=== PATIENT | female | born 1955 ===

== ENCOUNTER 2017-10-21 01:58 | Inpatient (IN) | payer OTHER ==
[2017-10-21] MEDS ORDERED: Pantoprazole 80 MG in Sodium Chloride 0.9% 100 ML IV STA (03:04)
[2017-10-21] MEDS ORDERED: Sodium Chloride 0.9% 1,000 ML IV ONE (03:04)
--- NOTE | 2017-10-21 03:04 | C.PDOC ---
History Of Present Illness Patient presents to ED with complaints of light headedness, dizziness, and vomiting coffee ground emesis. Daughter presented picture showing approximately 200-300cc of the patient's coffee ground emesis. Patient denies fever, chills, chest pain, or palpitations. Time Seen by Provider: 10/21/17 03:03 Chief Complaint (Nursing): Abdominal Pain History Per: Patient History/Exam Limitations: no limitations Onset/Duration Of Symptoms: Hrs Current Symptoms Are (Timing): Still Present Severity: Mild Pain Scale Rating Of: 4 Radiation Of Pain To:: None Quality Of Discomfort: Unable To Describe Associated Symptoms: Vomiting. denies: Fever, Chills, Diarrhea Exacerbating Factors: None Alleviating Factors: None Recent travel outside of the [place]: No Additional History Per: Family Abnormal Vaginal Bleeding: No Past Medical History Reviewed: Historical Data, Nursing Documentation, Vital Signs Vital Signs: Last Vital Signs Temp 97.4 F L 10/21/17 02:06 Pulse 115 H 10/21/17 03:20 Resp 20 10/21/17 03:20 BP 146/88 10/21/17 03:20 Pulse Ox 98 10/21/17 04:04 - Medical History PMH: No Chronic Diseases Family History: States: No Known Family Hx - Social History Hx Alcohol Use: No Hx Substance Use: No - Immunization History Hx Tetanus Toxoid Vaccination: No Hx Influenza Vaccination: No Hx Pneumococcal Vaccination: No Review Of Systems Constitutional: Negative for: Fever, Chills Cardiovascular: Positive for: Light Headedness. Negative for: Chest Pain, Palpitations Gastrointestinal: Positive for: Vomiting (Coffee ground). Negative for: Diarrhea Neurological: Positive for: Dizziness. Negative for: Confusion Physical Exam - Physical Exam Appears: Non-toxic, Other (Alert, awake) Skin: Warm, Dry Head: Normacephalic Eye(s): bilateral: Normal Inspection Oral Mucosa: Dry Chest: Symmetrical, No Tenderness Cardiovascular: Rhythm Regular Respiratory: No Rales, No Rhonchi, No Wheezing Gastrointestinal/Abdominal: Soft, No Tenderness, No Guarding, No Rebound, Other (Tympanic to percussion ) Neurological/Psych: Oriented x3 ED Course And Treatment - Laboratory Results Result Diagrams: 10/21/17 03:19 10/21/17 03:19 ECG: Interpreted By Me, Viewed By Me ECG Rhythm: Sinus Rhythm (107), Nonspecific Changes O2 Sat by Pulse Oximetry: 98 (Room air) Pulse Ox Interpretation: Normal Progress Note: Ordered Urinalysis, occult blood test, blood work, and EKG. Administered Protonix Inj, Zofran Inj, and IV fluids. Disposition Discussed With DrElysia: Randall Cortez Comment: accepted the pt on his service and took over the care at 3:58 AM Doctor Will See Patient In The: Hospital Counseled Patient/Family Regarding: Studies Performed, Diagnosis - Disposition Disposition: HOSPITALIZED Disposition Time: 03:04 Condition: FAIR Forms: [employer] (Telugu) - POA Present On Arrival: Poor Glycemic Control - Clinical Impression Clinical Impression: Abdominal pain, Vomiting, UGI bleed - Scribe Statement The provider has reviewed the documentation as recorded by the Scribsusan Polanco All medical record entries made by the Scribe were at my direction and personally dictated by me. I have reviewed the chart and agree that the record accurately reflects my personal performance of the history, physical exam, medical decision making, and the department course for this patient. I have also personally directed, reviewed, and agree with the discharge instructions and disposition. Decision To Admit - Pt Status Changed To: Hospital Disposition Of: Inpatient - Admit Certification Admit to Inpatient:: After my assessment, the patient will require hospitalization for at least two midnights. This is because of the severity of symptoms shown, intensity of services needed, and/or the medical risk in this patient being treated as an outpatient. - InPatient: Physician Admission Certification:: After my assessment, the patient will require hospitalization for at least two midnights. This is because of the severity of symptoms shown, intensity of services needed, and/or the medical risk in this patient being treated as an outpatient. - . Bed Request Type: Regular Patient Diagnosis: Abdominal pain, Vomiting, UGI bleed
[2017-10-21 03:29] LABS: ALKALINE PHOSPHATASE 94 U/L (38-126); ALT/SGPT 158 U/L (9-52); AST/SGOT 169 U/L (14-36); BILIRUBIN,TOTAL 1.4 mg/dL (0.2-1.3); BLOOD UREA NITROGEN 26 mg/dL (7-17); CALCIUM 7.8 mg/dl (8.6-10.4); CARBON DIOXIDE 27 mmol/L (22-30); CHLORIDE 107 mmol/L (98-107); GFR AFRICAN-AMERICAN > 60; GLUCOSE,RANDOM 164 mg/dL (65-105); POTASSIUM 4.1 mmol/L (3.6-5.2); SODIUM 139 mmol/L (132-148); TOTAL PROTEIN 8.1 g/dL (6.3-8.3)
[2017-10-21 03:31] LABS: ALB/GLOB RATIO 0.6 (1.0-2.1)
[2017-10-21] MEDS ORDERED: Sodium Chloride 0.9% 1,000 ML ONE (03:31)
[2017-10-21 03:32] LABS: INR 1.3
[2017-10-21 03:33] LABS: RBC URINE < 1 /hpf (0-3); URINE BILIRUBIN NEGATIVE (NEGATIVE); URINE BLOOD NEGATIVE (NEGATIVE); URINE COLOR Yellow (YELLOW); URINE GLUCOSE (UA) NORMAL (Normal); URINE KETONE TRACE mg/dL (NEGATIVE); URINE LEUKOCYTE ESTERASE NEG Leu/uL (Negative); URINE PROTEIN NEGATIVE (NEGATIVE); URINE UROBILINOGEN NORMAL mg/dL (0.2-1.0); WBC URINE 1 /hpf (0-5)
[2017-10-21 03:33] LABS: BASO # 0.1 K/uL (0.0-0.2); BASO % 0.7 % (0.0-2.0); EOS # 0.1 K/uL (0.0-0.7); EOS % 0.9 % (0.0-4.0); HEMATOCRIT 36.2 % (34.0-47.0); LYMPH # 1.3 K/uL (1.0-4.3); LYMPH % 16.6 % (20.0-40.0); MEAN CORPUSCULAR HGB CONC 33.7 g/dL (33.0-37.0); MEAN PLATELET VOLUME 10.2 fL (7.2-11.7); MONO # 0.2 K/uL (0.0-0.8); RED CELL DISTRIBUTION WIDTH 12.5 % (11.5-14.5)
[2017-10-21] MEDS ORDERED: Pantoprazole 80 MG in Sodium Chloride 0.9% 100 ML IVP SCH (04:30)
[2017-10-21] MEDS: Sodium Chloride 0.9% 1,000 ML IV SCH ×2 (07:12→12:50)
--- NOTE | 2017-10-21 08:17 | CP.PCM.CON ---
<Nani Fleming - Last Filed: 10/21/17 08:10> History of Present Illness - History of Present Illness History of Present Illness: GI Fellow PGY 4 Consult Note This is a 62yF with pmhx of HCV treatment naive, arthritis presenting with 2 episodes of coffee ground emesis prior to arrival to ER. Pt denies prior hx of GI bleed, denies melena, hematochezia. No prior EGD/Colonoscopy. Pt does report taking Ibuprofen 400mg tab bid for months. Denies epigastric pain, nausea, per daughter at bedside she took a pic and it looks like 200cc of coffee ground emesis. Pt endorses diagnosis of HCV last year and has an appointment at [facility] this to establish care. Pt reports transmission of virus via who was also positive for HCV. Pt was started on IV Protonix drip, H/H stable, BP stable, Tachycardic. ROS: A 12pt ROS was negative except as above. PmHx: As Stated in HPI PsHx: Denies SHx: Denies tobacco, etoh, drug use FHx: Denies colon, liver or pancreatic cancer Past Patient History - Past Social History Smoking Status: Never Smoked - HEMATOLOGICAL/ONCOLOGICAL Hx Hepatitis C: Yes - PSYCHIATRIC Hx Substance Use: No - ANESTHESIA Hx Anesthesia: No Meds Allergies/Adverse Reactions: Allergies Allergy/AdvReac Type Severity Reaction Status Date / Time No Known Allergies Allergy Unverified 10/21/17 02:16 - Medications Medications: Current Medications Pantoprazole Sodium 80 mg/ (Sodium Chloride) 100 mls @ 10 mls/hr IVP .Q10H TARYN PRN Reason: 8 MG/HR Last Admin: 10/21/17 04:59 Dose: 10 mls/hr Sodium Chloride (Sodium Chloride 0.9%) 1,000 mls @ 150 mls/hr IV .Q6H40M [facility] Last Admin: 10/21/17 07:12 Dose: 150 mls/hr Pneumococcal Polyvalent Vaccine (Pneumovax 23 Vaccine) 0.5 ml IM .ONCE ONE Stop: 10/24/17 10:01 Physical Exam - Constitutional Appears: Non-toxic, No Acute Distress - Head Exam Head Exam: ATRAUMATIC, NORMAL INSPECTION, NORMOCEPHALIC - Eye Exam Eye Exam: EOMI, Normal appearance, PERRL Pupil Exam: NORMAL ACCOMODATION - ENT Exam ENT Exam: Mucous Membranes Moist, Normal Exam - Neck Exam Neck exam: Positive for: Full Rom, Normal Inspection - Respiratory Exam Respiratory Exam: Clear to Auscultation Bilateral, NORMAL BREATHING PATTERN - GI/Abdominal Exam GI & Abdominal Exam: Normal Bowel Sounds, Soft. absent: Distended, Guarding, Organomegaly, Tenderness - Rectal Exam Additional comments: brown stool - Extremities Exam Extremities exam: Positive for: full ROM, normal inspection. Negative for: pedal edema - Back Exam Back exam: NORMAL INSPECTION - Neurological Exam Neurological exam: Alert, Oriented x3 - Psychiatric Exam Psychiatric exam: Normal Affect, Normal Mood - Skin Skin Exam: Dry, Intact, Normal Color, Warm Results - Vital Signs Recent Vital Signs: Last Vital Signs Temp 98.3 F 10/21/17 07:43 Pulse 107 H 10/21/17 07:43 Resp 20 10/21/17 07:43 BP 113/65 10/21/17 07:43 Pulse Ox 99 10/21/17 07:43 - Labs Result Diagrams: 10/21/17 03:19 10/21/17 03:19 Labs: Laboratory Results - last 24 hr 10/21/17 10/21/17 10/21/17 03:19 03:19 03:21 WBC 8.0 RBC 3.69 L Hgb 12.2 Hct 36.2 MCV 98.0 MCH 33.0 H MCHC 33.7 RDW 12.5 Plt Count 169 MPV 10.2 Neut % (Auto) 78.8 H Lymph % (Auto) 16.6 L [place] % (Auto) 3.0 Eos % (Auto) 0.9 Baso % (Auto) 0.7 Neut # 6.3 Lymph # 1.3 [place] # 0.2 Eos # 0.1 Baso # 0.1 PT 14.1 H INR 1.3 APTT 36 H Sodium 139 Potassium 4.1 Chloride 107 Carbon Dioxide 27 Anion Gap 8 L BUN 26 H Creatinine 0.7 Est GFR ( Amer) > 60 Est GFR (Non-Af Amer) > 60 Random Glucose 164 H Calcium 7.8 L Total Bilirubin 1.4 H AST 169 H ALT 158 H Alkaline Phosphatase 94 Total Protein 8.1 Albumin 3.1 L Globulin 5.0 H Albumin/Globulin Ratio 0.6 L Urine Color Urine Clarity Urine pH Ur Specific [place] Urine Protein Urine Glucose (UA) Urine Ketones Urine Blood Urine Nitrate Urine Bilirubin Urine Urobilinogen Ur Leukocyte Esterase Urine WBC (Auto) Urine RBC (Auto) Blood Type Antibody Screen 10/21/17 10/21/17 03:28 04:09 WBC RBC Hgb Hct MCV MCH MCHC RDW Plt Count MPV Neut % (Auto) Lymph % (Auto) [place] % (Auto) Eos % (Auto) Baso % (Auto) Neut # Lymph # [place] # Eos # Baso # PT INR APTT Sodium Potassium Chloride Carbon Dioxide Anion Gap BUN Creatinine Est GFR ( Amer) Est GFR (Non-Af Amer) Random Glucose Calcium Total Bilirubin AST ALT Alkaline Phosphatase Total Protein Albumin Globulin Albumin/Globulin Ratio Urine Color Yellow Urine Clarity Clear Urine pH 7.0 Ur Specific [place] 1.016 Urine Protein Negative Urine Glucose (UA) Normal Urine Ketones Trace Urine Blood Negative Urine Nitrate Negative Urine Bilirubin Negative Urine Urobilinogen Normal Ur Leukocyte Esterase Neg Urine WBC (Auto) 1 Urine RBC (Auto) < 1 Blood Type O POSITIVE Antibody Screen Negative Assessment & Plan - Assessment and Plan (Free Text) Assessment: This is a 62yF presenting with coffee ground emesis. 1. Coffee ground emesis 2. HCV Plan: -Continue supportive care with anti-emetics -Continue PPI drip -Will start IVF NS @ 150cc/hr, pt is tachycardic -No active GI bleeding, H/H stable, continue to monitor and transfuse as needed -Plan for EGD today to r/p PUD, gastritis, esophagitis -Consent signed and in chart -HCV treatment and further management as an outpt, appt at [facility] this week -Will continue to follow closely <Bertha Robledo MD - Last Filed: 10/21/17 16:32> Meds - Medications Medications: Current Medications Sodium Chloride (Sodium Chloride 0.9%) 1,000 mls @ 100 mls/hr IV .Q10H TARYN Pantoprazole Sodium (Protonix Ec Tab) 40 mg PO DAILY TARYN Pneumococcal Polyvalent Vaccine (Pneumovax 23 Vaccine) 0.5 ml IM .ONCE ONE Stop: 10/24/17 10:01 Results - Vital Signs Recent Vital Signs: Last Vital Signs Temp 97 F L 10/21/17 13:45 Pulse 100 H 10/21/17 14:15 Resp 22 10/21/17 14:15 BP 142/77 10/21/17 14:15 Pulse Ox 100 10/21/17 14:15 - Labs Result Diagrams: 10/21/17 03:19 10/21/17 03:19 Labs: Laboratory Results - last 24 hr 10/21/17 10/21/17 10/21/17 03:19 03:19 03:21 WBC 8.0 RBC 3.69 L Hgb 12.2 Hct 36.2 MCV 98.0 MCH 33.0 H MCHC 33.7 RDW 12.5 Plt Count 169 MPV 10.2 Neut % (Auto) 78.8 H Lymph % (Auto) 16.6 L [place] % (Auto) 3.0 Eos % (Auto) 0.9 Baso % (Auto) 0.7 Neut # 6.3 Lymph # 1.3 [place] # 0.2 Eos # 0.1 Baso # 0.1 PT 14.1 H INR 1.3 APTT 36 H Sodium 139 Potassium 4.1 Chloride 107 Carbon Dioxide 27 Anion Gap 8 L BUN 26 H Creatinine 0.7 Est GFR ( Amer) > 60 Est GFR (Non-Af Amer) > 60 Random Glucose 164 H Calcium 7.8 L Total Bilirubin 1.4 H AST 169 H ALT 158 H Alkaline Phosphatase 94 Total Protein 8.1 Albumin 3.1 L Globulin 5.0 H Albumin/Globulin Ratio 0.6 L Urine Color Urine Clarity Urine pH Ur Specific [place] Urine Protein Urine Glucose (UA) Urine Ketones Urine Blood Urine Nitrate Urine Bilirubin Urine Urobilinogen Ur Leukocyte Esterase Urine WBC (Auto) Urine RBC (Auto) Blood Type Antibody Screen 10/21/17 10/21/17 03:28 04:09 WBC RBC Hgb Hct MCV MCH MCHC RDW Plt Count MPV Neut % (Auto) Lymph % (Auto) [place] % (Auto) Eos % (Auto) Baso % (Auto) Neut # Lymph # [place] # Eos # Baso # PT INR APTT Sodium Potassium Chloride Carbon Dioxide Anion Gap BUN Creatinine Est GFR ( Amer) Est GFR (Non-Af Amer) Random Glucose Calcium Total Bilirubin AST ALT Alkaline Phosphatase Total Protein Albumin Globulin Albumin/Globulin Ratio Urine Color Yellow Urine Clarity Clear Urine pH 7.0 Ur Specific [place] 1.016 Urine Protein Negative Urine Glucose (UA) Normal Urine Ketones Trace Urine Blood Negative Urine Nitrate Negative Urine Bilirubin Negative Urine Urobilinogen Normal Ur Leukocyte Esterase Neg Urine WBC (Auto) 1 Urine RBC (Auto) < 1 Blood Type O POSITIVE Antibody Screen Negative Attending/Attestation - Attestation I have personally seen and examined this patient.: Yes I have fully participated in the care of the patient.: Yes I have reviewed all pertinent clinical information: Yes Notes (Text): 10/21/17 16:30 Patient seen at bedside with GI fellow. This is a 62 year old F presenting with coffee ground emesis in setting of NSAID use and chronic treatment naive HCV. Urgent EGd revealed ulcer with visible vessel hemostasis achieved with epinephrine and resolution clip. NSAID discontinued. Will need repeat EGD in 2 months. PPI daily. Can resume clear liquid diet today. Outpatient follow up for colonoscopy and HCV treatment
[2017-10-21] MEDS ORDERED: Propofol 10 mg/ml Inj (20 ML) ONE (13:21)
[2017-10-21] MEDS ORDERED: Lactated Ringer's 1,000 ML IV ONE (13:40)
[2017-10-21] MEDS ORDERED: Lidocaine Hydrochloride 5 ML INJ ONE (13:53)
[2017-10-21] MEDS ORDERED: Pantoprazole 80 MG in Sodium Chloride 0.9% 100 ML IV SCH (14:30)
[2017-10-21 16:39] VITALS: RESP 20
--- NOTE | 2017-10-21 19:32 | CP.PCM.HP ---
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 Pt accompanied by daughter who shows photo of vomitus noting approximately 200-300cc coffee ground emesis. Denies n/v/d. Denies fever, chest pain, heartburn, dyspnea, BRBPR, melena, hematochezia, palpitations, syncope. Pt reports use of Ibuprofen daily for few months. Denies any prior GI bleed or h /o gastritis or PUD. Pt reports she contracted HCV from her who also is HCV+ and has a scheduled appointment at [facility] for further management. In ED, H& H and BP was stable with HR tachycardic. Pt was started on IVF and IV protonix. Present on Admission - Present on Admission Any Indicators Present on Admission: No Review of Systems - Constitutional Constitutional: As Per HPI - Cardiovascular Cardiovascular: Lightheadedness - Gastrointestinal Gastrointestinal: Abdominal Pain, Vomiting Additional comments: coffee ground emesis Past Patient History - Past Medical History & Family History Past Medical History?: Yes - Past Social History Smoking Status: Never Smoked - CARDIAC Hx Cardiac Disorders: No - PULMONARY Hx Respiratory Disorders: No - NEUROLOGICAL Hx Neurological Disorder: No - HEENT Hx HEENT Problems: No - RENAL Hx Chronic Kidney Disease: No - ENDOCRINE/METABOLIC Hx Endocrine Disorders: No - HEMATOLOGICAL/ONCOLOGICAL Hx Hepatitis C: Yes - INTEGUMENTARY Hx Dermatological Problems: No - MUSCULOSKELETAL/RHEUMATOLOGICAL Hx Musculoskeletal Disorders: Yes Hx Arthritis: Yes Hx Falls: No - GASTROINTESTINAL Hx Gastrointestinal Disorders: No - GENITOURINARY/GYNECOLOGICAL Hx Genitourinary Disorders: No - PSYCHIATRIC Hx Substance Use: No - SURGICAL HISTORY Hx Surgeries: No - ANESTHESIA Hx Anesthesia: No Meds Allergies/Adverse Reactions: Allergies Allergy/AdvReac Type Severity Reaction Status Date / Time No Known Allergies Allergy Unverified 10/21/17 02:16 Physical Exam - Constitutional Appears: Well - Head Exam Head Exam: ATRAUMATIC, NORMAL INSPECTION, NORMOCEPHALIC - Eye Exam Eye Exam: EOMI, Normal appearance, PERRL Pupil Exam: NORMAL ACCOMODATION, PERRL - ENT Exam ENT Exam: Mucous Membranes Moist, Normal Exam - Neck Exam Neck exam: Positive for: Normal Inspection - Respiratory Exam Respiratory Exam: Decreased Breath Sounds - Cardiovascular Exam Cardiovascular Exam: REGULAR RHYTHM, +S1, +S2 - GI/Abdominal Exam GI & Abdominal Exam: Diminished Bowel Sounds, Soft - Rectal Exam Rectal Exam: Deferred - Neurological Exam Neurological exam: Alert, Oriented x3 Results - Vital Signs Recent Vital Signs: Last Vital Signs Temp 98.3 F 10/21/17 15:20 Pulse 106 H 10/21/17 15:20 Resp 20 10/21/17 15:20 BP 132/80 10/21/17 15:20 Pulse Ox 97 10/21/17 15:20 - Labs Result Diagrams: 10/21/17 03:19 10/21/17 03:19 Labs: Laboratory Results - last 24 hr 10/21/17 10/21/17 10/21/17 03:19 03:19 03:21 WBC 8.0 RBC 3.69 L Hgb 12.2 Hct 36.2 MCV 98.0 MCH 33.0 H MCHC 33.7 RDW 12.5 Plt Count 169 MPV 10.2 Neut % (Auto) 78.8 H Lymph % (Auto) 16.6 L [place] % (Auto) 3.0 Eos % (Auto) 0.9 Baso % (Auto) 0.7 Neut # 6.3 Lymph # 1.3 [place] # 0.2 Eos # 0.1 Baso # 0.1 PT 14.1 H INR 1.3 APTT 36 H Sodium 139 Potassium 4.1 Chloride 107 Carbon Dioxide 27 Anion Gap 8 L BUN 26 H Creatinine 0.7 Est GFR ( Amer) > 60 Est GFR (Non-Af Amer) > 60 Random Glucose 164 H Calcium 7.8 L Total Bilirubin 1.4 H AST 169 H ALT 158 H Alkaline Phosphatase 94 Total Protein 8.1 Albumin 3.1 L Globulin 5.0 H Albumin/Globulin Ratio 0.6 L Urine Color Urine Clarity Urine pH Ur Specific [place] Urine Protein Urine Glucose (UA) Urine Ketones Urine Blood Urine Nitrate Urine Bilirubin Urine Urobilinogen Ur Leukocyte Esterase Urine WBC (Auto) Urine RBC (Auto) Blood Type Antibody Screen 10/21/17 10/21/17 03:28 04:09 WBC RBC Hgb Hct MCV MCH MCHC RDW Plt Count MPV Neut % (Auto) Lymph % (Auto) [place] % (Auto) Eos % (Auto) Baso % (Auto) Neut # Lymph # [place] # Eos # Baso # PT INR APTT Sodium Potassium Chloride Carbon Dioxide Anion Gap BUN Creatinine Est GFR ( Amer) Est GFR (Non-Af Amer) Random Glucose Calcium Total Bilirubin AST ALT Alkaline Phosphatase Total Protein Albumin Globulin Albumin/Globulin Ratio Urine Color Yellow Urine Clarity Clear Urine pH 7.0 Ur Specific [place] 1.016 Urine Protein Negative Urine Glucose (UA) Normal Urine Ketones Trace Urine Blood Negative Urine Nitrate Negative Urine Bilirubin Negative Urine Urobilinogen Normal Ur Leukocyte Esterase Neg Urine WBC (Auto) 1 Urine RBC (Auto) < 1 Blood Type O POSITIVE Antibody Screen Negative Assessment & Plan (1) Abdominal pain Status: Acute (2) UGI bleed Status: Acute (3) Vomiting Status: Acute - Assessment and Plan (Free Text) Plan: EKG iv protonix ivf CBC CMP PT/PTT/INR UA FOBT GI consult Dr Rojas diez as ordered monitor for nausea and vomiting
[2017-10-22] MEDS: Sodium Chloride 0.9% 1,000 ML IV SCH ×3 (02:21→11:38)
[2017-10-22] MEDS: Pantoprazole 40 mg EC Tab PO SCH ×2 (05:19→11:36)
[2017-10-22 07:25] LABS: BASO # 0.1 K/uL (0.0-0.2); EOS # 0.2 K/uL (0.0-0.7); MEAN CORPUSCULAR HEMOGLOBIN 33.8 pg (27.0-31.0); MEAN PLATELET VOLUME 9.4 fL (7.2-11.7); MONO # 0.4 K/uL (0.0-0.8)
[2017-10-22 07:32] LABS: BASO % 0.9 % (0.0-2.0); LYMPH # 3.2 K/uL (1.0-4.3); LYMPH % 36.9 % (20.0-40.0); MONO % 4.5 % (0.0-10.0); NRBC % 0.2 % (0.0-2.0); RED CELL DISTRIBUTION WIDTH 12.8 % (11.5-14.5); WHITE BLOOD COUNT 8.8 K/uL (4.8-10.8)
[2017-10-22 07:33] LABS: HEMATOCRIT 26.1 % (34.0-47.0); MEAN CELL VOLUME 98.3 fL (81.0-99.0)
[2017-10-22 07:34] LABS: MEAN CORPUSCULAR HGB CONC 34.4 g/dL (33.0-37.0)
--- NOTE | 2017-10-22 07:43 | CP.PCM.PN ---
<Nani Fleming - Last Filed: 10/22/17 08:40> Subjective - Date & Time of Evaluation Date of Evaluation: 10/22/17 Time of Evaluation: 06:30 - Subjective Subjective: GI Fellow PGY4 Progress Note Pt seen and evaluated at bedside, doing better with no further coffee ground emesis, nausea or vomiting. No melena or hematochezia. Tolerating clear liquid diet. ROS: A 12pt ROS was negative except as above. Objective - Vital Signs/Intake and Output Vital Signs (last 24 hours): Temp Pulse Resp BP Pulse Ox 98.6 F 107 H 20 106/64 98 10/22/17 00:00 10/22/17 00:00 10/22/17 00:00 10/22/17 00:00 10/22/17 00:00 Intake and Output: 10/22/17 10/22/17 06:59 18:59 Intake Total 1150 Balance 1150 - Medications Medications: Current Medications Sodium Chloride (Sodium Chloride 0.9%) 1,000 mls @ 100 mls/hr IV .Q10H TARYN Last Admin: 10/22/17 02:21 Dose: 100 mls/hr Pantoprazole Sodium (Protonix Ec Tab) 40 mg PO DAILY [facility] Last Admin: 10/22/17 05:19 Dose: 40 mg Pneumococcal Polyvalent Vaccine (Pneumovax 23 Vaccine) 0.5 ml IM .ONCE ONE Stop: 10/24/17 10:01 - Labs Labs: 10/22/17 07:13 10/21/17 03:19 PT 14.1 SECONDS (9.7-12.2) H 10/21/17 03:21 INR 1.3 10/21/17 03:21 APTT 36 SECONDS (21-34) H 10/21/17 03:21 - Constitutional Appears: Non-toxic, No Acute Distress - Head Exam Head Exam: ATRAUMATIC, NORMAL INSPECTION, NORMOCEPHALIC - Eye Exam Eye Exam: EOMI, Normal appearance, PERRL Pupil Exam: PERRL - ENT Exam ENT Exam: Mucous Membranes Moist, Normal Exam - Neck Exam Neck Exam: Full ROM, Normal Inspection - Respiratory Exam Respiratory Exam: Clear to Ausculation Bilateral, NORMAL BREATHING PATTERN - Cardiovascular Exam Cardiovascular Exam: RRR, +S1, +S2 - GI/Abdominal Exam GI & Abdominal Exam: Soft, Normal Bowel Sounds. absent: Distended, Tenderness, Organomegaly - Rectal Exam Rectal Exam: Deferred - Extremities Exam Extremities Exam: Full ROM, Normal Inspection - Back Exam Back Exam: NORMAL INSPECTION - Neurological Exam Neurological Exam: Alert, Awake, Oriented x3 - Psychiatric Exam Psychiatric exam: Normal Affect, Normal Mood - Skin Skin Exam: Dry, Intact, Normal Color, Warm Assessment and Plan - Assessment and Plan (Free Text) Assessment: This is a 62yF presenting with coffee ground emesis. 1. Coffee ground emesis 2. Prepyloric Ulcer nonbleeding visible vessel FCIIa 3. HCV Plan: -Continue supportive care with anti-emetics and IVF hydration -Continue PPI po 40mg daily as an outpt -Pt s/p urgent EGD with prepyloric ulcer with nonbleeding visible vessel s/p epi /clip for hemostasis -Pt will need repeat EGD in 2months -Discussed with pt to avoid NSAIDs -Hgb low from PUD with no further active GI bleeding, monitor H/H as an outpt -Advance diet as tolerated -HCV treatment and further management as an outpt, appt at [facility] this week -Will order Abdominal US to r/o any liver lesion -Per GI perspective pt okay for discharge home today <Shashank Xie - Last Filed: 10/22/17 09:00> Objective - Vital Signs/Intake and Output Vital Signs (last 24 hours): Temp Pulse Resp BP Pulse Ox 97.9 F 98 H 20 103/68 97 10/22/17 07:47 10/22/17 07:47 10/22/17 07:47 10/22/17 07:47 10/22/17 07:47 Intake and Output: 10/22/17 10/22/17 06:59 18:59 Intake Total 1150 1150 Balance 1150 1150 - Medications Medications: Current Medications Sodium Chloride (Sodium Chloride 0.9%) 1,000 mls @ 100 mls/hr IV .Q10H TARYN Last Admin: 10/22/17 02:21 Dose: 100 mls/hr Pantoprazole Sodium (Protonix Ec Tab) 40 mg PO DAILY TARYN Last Admin: 10/22/17 05:19 Dose: 40 mg Pneumococcal Polyvalent Vaccine (Pneumovax 23 Vaccine) 0.5 ml IM .ONCE ONE Stop: 10/24/17 10:01 - Labs Labs: 10/22/17 07:13 10/22/17 07:13 PT 14.1 SECONDS (9.7-12.2) H 10/21/17 03:21 INR 1.3 10/21/17 03:21 APTT 36 SECONDS (21-34) H 10/21/17 03:21 Attending/Attestation - Attestation I have personally seen and examined this patient.: Yes I have fully participated in the care of the patient.: Yes I have reviewed all pertinent clinical information, including history, physical exam and plan: Yes Notes (Text): 10/22/17 08:57 I have seen and examined patient with GI fellow. No acute events overnight. She denies abdominal pain, nausea, vomiting, fever/chills. She had two soft brown bowel movements this morning. She is requesting hospital discharge. Review of vitals from today shows tachycardia. Chronic HCV, transaminitis Anemia s/p EGD yesterday showing gastric ulcer with visible vessel s/p epinephrine injection and endoclip therapy - Diet as tolerated - Decrease in H/H noted, though no overt bleeding - continue to monitor - Continue with PPI therapy - Obtain baseline abdominal US given chronic HCV with transaminitis - NSAID avoidance - Patient has scheduled outpatient appointment with Dr. Damico at [facility] liver clinic this - Suggest repeat EGD within 2 months to ensure ulcer healing - If patient tolerating PO diet and no significant abnormalities present on US imaging, from GI standpoint ok to discharge home with subsequent outpatient follow up
[2017-10-22 07:49] LABS: ALB/GLOB RATIO 0.8 (1.0-2.1); ALKALINE PHOSPHATASE 67 U/L (38-126); ALT/SGPT 109 U/L (9-52); AST/SGOT 126 U/L (14-36); BILIRUBIN,TOTAL 1.3 mg/dL (0.2-1.3); BLOOD UREA NITROGEN 19 mg/dL (7-17); CARBON DIOXIDE 23 mmol/L (22-30); CHLORIDE 113 mmol/L (98-107); GFR AFRICAN-AMERICAN > 60; GLUCOSE,RANDOM 99 mg/dL (65-105); POTASSIUM 3.2 mmol/L (3.6-5.2); SODIUM 139 mmol/L (132-148); TOTAL PROTEIN 5.2 g/dL (6.3-8.3)
[2017-10-22 07:50] VITALS: BP 103/68; PULSE 98; TEMP 97.9; O2SAT 97
--- NOTE | 2017-10-22 10:37 | US ---
HISTORY: elevated LFTs, h/o HCV COMPARISON: None available TECHNIQUE: Sonographic evaluation of the abdomen. FINDINGS: LIVER: Measures 14.8 cm in sagittal dimension. Echogenic liver may be seen in setting of hepatic parenchymal disease or fatty infiltration. No focal hepatic mass identified. The main portal vein appears patent with normal directional flow. No intrahepatic bile duct dilatation. GALLBLADDER: No gallstones. No gallbladder wall thickening. Negative sonographic Matamoros's sign as assessed by the rubber molder. COMMON BILE DUCT: Measures 2 mm. PANCREAS: Not well visualized. RIGHT KIDNEY: Measures 12.1 x 3.6 x 4.5cm. No obstructing calculus or hydronephrosis identified. LEFT KIDNEY: Measures 11.8 x 3.6 x 3.9cm. No obstructing calculus or hydronephrosis identified SPLEEN: Measures approximately 15.3 cm. AORTA: Limited views appear unremarkable. IVC: Limited views appear unremarkable. OTHER FINDINGS: None. IMPRESSION: Echogenic liver may be seen in setting of hepatic parenchymal disease or fatty infiltration.
[2017-10-22] MEDS ORDERED: Potassium Chloride 20 mEq ER Tab PO ONE (14:00)
[2017-10-22] MEDS ORDERED: Pneumococcal 23-Valent Vaccine IM ONE (15:00)
[2017-10-22] MEDS ORDERED: Influenza Vaccine 60 mcg/0.5 mL SYR (4YR UP) IM ONE (15:00)
--- NOTE | 2017-10-22 15:50 | CP.PCM.PN ---
Subjective - Date & Time of Evaluation Date of Evaluation: 10/22/17 Time of Evaluation: 11:00 - Subjective Subjective: Alert, orientedx3, no abdominal pain or vomiting. Objective - Vital Signs/Intake and Output Vital Signs (last 24 hours): Temp Pulse Resp BP Pulse Ox 97.9 F 98 H 20 103/68 97 10/22/17 07:47 10/22/17 07:47 10/22/17 07:47 10/22/17 07:47 10/22/17 07:47 Intake and Output: 10/22/17 10/22/17 06:59 18:59 Intake Total 1150 1150 Balance 1150 1150 - Medications Medications: Current Medications Sodium Chloride (Sodium Chloride 0.9%) 1,000 mls @ 100 mls/hr IV .Q10H TARYN Last Admin: 10/22/17 11:38 Dose: 100 mls/hr Pantoprazole Sodium (Protonix Ec Tab) 40 mg PO DAILY TARYN Last Admin: 10/22/17 11:36 Dose: Not Given - Labs Labs: 10/22/17 07:13 10/22/17 07:13 PT 14.1 SECONDS (9.7-12.2) H 10/21/17 03:21 INR 1.3 10/21/17 03:21 APTT 36 SECONDS (21-34) H 10/21/17 03:21 Assessment and Plan - Assessment and Plan (Free Text) Assessment: Patient is seen and examined. Alert, orientedx3, tolerating diet, no distress noted. No nausea or vomiting today. Cleared by GI, discussed with DR Franklyn Cortez, plan to discharge home today. Family made aware. Advised to follow up in the office in 1 week.
--- NOTE | 2017-10-22 18:34 | CARD ---
APPROVED REPORT EKG Measurement Heart [id number] VT [id number] <Conclusion> Sinus tachycardia Otherwise normal ECG
== END 2017-10-22 16:04 | disposition home or self-care (01) | DRG 174 ==
LOC: C.ER 01:58 → C.3T 03:56
PROVIDERS: ADMIT Internal Medicine Nephrology; ATTEND Internal Medicine Nephrology
PROC: 0DB68ZX Excision of Stomach, Via Natural or Artificial Opening Endoscopic, Diagnostic (ICD-10-PCS; 2017-10-21)
PROC: 0W3P8ZZ Control Bleeding in Gastrointestinal Tract, Via Natural or Artificial Opening Endoscopic (ICD-10-PCS; principal; 2017-10-21 13:22)
DX: K25.4 Chronic or unspecified gastric ulcer with hemorrhage (principal); B19.20 Unspecified viral hepatitis C without hepatic coma; K29.50 Unspecified chronic gastritis without bleeding; B18.2 Chronic viral hepatitis C; D64.9 Anemia, unspecified; M19.90 Unspecified osteoarthritis, unspecified site; R00.0 Tachycardia, unspecified

== ENCOUNTER 2018-05-22 14:52 | Inpatient (IN) | payer OTHER ==
[2018-05-22] MEDS ORDERED: Sodium Chloride 0.9% 1,000 ML IV ONE (15:25)
--- NOTE | 2018-05-22 15:28 | C.PDOC ---
History Of Present Illness 63 yo female w/PMhx of HCV ( complete her treatment 3 months ago), hx of upper GI bleed ( last endoscopy in 12/2017), hx of Prepyloric Ulcer nonbleeding, present to ED for evaluation of episode of vomiting with coffee ground emesis developed since last night. As per daughter, pt had few episode of vomiting with one episode of coffee ground emesis and few more yellow sputum with bloody streaks. Daughter reports, similar sx in past, " had lentil prior to onset of vomiting like last time". At present time, pt c/o nausea, " feel hungry". Otherwise, denies fever, chills, CP, SOB, dyspnea, diaphoresis, palpitation, abd. pain, diarrhea, melena, hematoschezia., UTi sx. AT present time, appears comfortable, not in any apparent distress. Pt denies taking GI medication at present time. Time Seen by Provider: 05/22/18 15:11 Chief Complaint (Nursing): GI Problem History Per: Patient Past Medical History Reviewed: Historical Data, Nursing Documentation, Vital Signs Vital Signs: Last Vital Signs Temp 98.0 F 05/22/18 15:06 Pulse 107 H 05/22/18 16:44 Resp 20 05/22/18 16:44 BP 132/71 05/22/18 16:44 Pulse Ox 97 05/22/18 16:44 - Medical History PMH: Arthritis, Gastrointestinal Ulcer, GERD Denies: Chronic Kidney Disease - [facility] Procedures CONTROL BLEEDING IN GASTROINTESTINAL TRACT, ENDO (10/21/17) EXCISION OF STOMACH, ENDO, DIAGN (10/21/17) Family History: States: No Known Family Hx - Social History Hx Tobacco Use: No Hx Alcohol Use: No Hx Substance Use: No - Immunization History Hx Tetanus Toxoid Vaccination: No Hx Influenza Vaccination: No Hx Pneumococcal Vaccination: No Review Of Systems Except As Marked, All Systems Reviewed And Found Negative. Constitutional: Negative for: Fever, Chills ENT: Negative for: Ear Discharge, Nose Discharge, Throat Pain, Throat Swelling Cardiovascular: Negative for: Chest Pain, Palpitations, Edema, Light Headedness Respiratory: Negative for: Cough, Shortness of Breath Gastrointestinal: Positive for: Nausea, Vomiting, Hematemesis. Negative for: Abdominal Pain, Melena, Hematochezia, Rectal Pain Genitourinary: Negative for: Dysuria Musculoskeletal: Negative for: Neck Pain, Back Pain Skin: Negative for: Rash Neurological: Negative for: Weakness, Numbness, Headache, Dizziness Physical Exam - Physical Exam Appears: Well, Non-toxic, No Acute Distress Skin: Normal Color, Warm, Dry, No Rash Head: Normacephalic Eye(s): bilateral: PERRL Nose: No Flaring, No Discharge Oral Mucosa: Moist Throat: No Erythema, No Drooling Neck: Trachea Midline, Supple Cardiovascular: Rhythm Regular, No Murmur, No JVD Respiratory: No Decreased Breath Sounds, No Accessory Muscle Use, No Stridor, No Wheezing Gastrointestinal/Abdominal: Soft, No Tenderness, No Distention, No Guarding, No Rebound Back: No CVA Tenderness Extremity: Normal ROM, No Pedal Edema, No Swelling Neurological/Psych: Oriented x3, Normal Speech ED Course And Treatment - Laboratory Results Result Diagrams: 05/22/18 15:33 05/22/18 15:33 ECG: Interpreted By Me, Viewed By Me ECG Rhythm: Sinus Rhythm ECG Interpretation: No Changes From Prior (10/21/17) Interpretation Of ECG: SR@106/min, RAD, T wave inversion in III, AVF, no acute ST-T changes. O2 Sat by Pulse Oximetry: 98 Pulse Ox Interpretation: Normal - Radiology CXR: Interpreted by Me, Viewed By Me CXR Interpretation: Yes: No Acute Disease Progress Note: Pt remained tsable during the ED evaluation. case discussed with pt's PMD and admission arrnaged with Dx: Upper GI bleed hx of peptic ulcer. Disposition - Disposition Disposition: HOSPITALIZED Disposition Time: 16:14 Condition: STABLE - Clinical Impression Clinical Impression: Gastrointestinal hemorrhage
[2018-05-22 15:38] LABS: BASO # 0.1 K/uL (0.0-0.2); BASO % 0.7 % (0.0-2.0); EOS % 0.2 % (0.0-4.0); HEMOGLOBIN 11.1 g/dL (11.0-16.0); LYMPH % 14.6 % (20.0-40.0); MEAN CELL VOLUME 96.1 fL (81.0-99.0); MEAN CORPUSCULAR HGB CONC 33.2 g/dL (33.0-37.0); MEAN PLATELET VOLUME 9.5 fL (7.2-11.7); MONO # 0.7 K/uL (0.0-0.8); MONO % 4.8 % (0.0-10.0); NEUT # 10.8 K/uL (1.8-7.0); NEUT % 79.7 % (50.0-75.0); RBC 3.48 Mil/uL (3.80-5.20); RED CELL DISTRIBUTION WIDTH 13.5 % (11.5-14.5); WHITE BLOOD COUNT 13.6 K/uL (4.8-10.8)
[2018-05-22] MEDS ORDERED: Sodium Chloride 0.9% 1,000 ML ONE (15:42)
[2018-05-22 15:46] LABS: INR 1.5; PROTHROMBIN TIME 16.2 SECONDS (9.7-12.2)
[2018-05-22 15:54] LABS: SQUAMOUS EPITHIAL < 1 /hpf (0-5); URINE BILIRUBIN NEGATIVE (NEGATIVE); URINE BLOOD 2+ (NEGATIVE); URINE CLARITY Clear (Clear); URINE COLOR Yellow (YELLOW); URINE GLUCOSE (UA) NORMAL (Normal); URINE LEUKOCYTE ESTERASE NEG Leu/uL (Negative); URINE PROTEIN NEGATIVE (NEGATIVE); URINE UROBILINOGEN NORMAL mg/dL (0.2-1.0)
[2018-05-22 16:03] LABS: ALB/GLOB RATIO 0.9 (1.0-2.1); ALBUMIN 3.5 g/dL (3.5-5.0); ALT/SGPT 34 U/L (9-52); AST/SGOT 43 U/L (14-36); BLOOD UREA NITROGEN 28 mg/dL (7-17); CALCIUM 8.8 mg/dl (8.6-10.4); GFR AFRICAN-AMERICAN > 60; GFR NON-AFRICAN AMERICAN > 60; LIPASE 71 U/L (23-300)
--- NOTE | 2018-05-22 16:53 | RAD ---
HISTORY: COMPARISON: None. TECHNIQUE: Chest PA and lateral FINDINGS: LINES AND TUBES: None. LUNG AND PLEURA: The lungs are hyperinflated and there is peribronchial thickening with chronic changes in both lungs. No focal consolidation. No pleural effusion or pneumothorax. HEART AND MEDIASTINUM: The heart is not enlarged. The hilar and mediastinal contours are within normal limits. SKELETAL STRUCTURES: The bony structures are within normal limits for the patient's age. VISUALIZED UPPER ABDOMEN: Normal. OTHER FINDINGS: None. IMPRESSION: No active pulmonary disease. COPD.
[2018-05-22] MEDS: Potassium Ch 20mEq in D5-1/2NS 1,000 ML IV SCH (21:17)
--- NOTE | 2018-05-23 02:06 | CP.PCM.CON ---
History of Present Illness - History of Present Illness History of Present Illness: General Surgery Consult Note for Dr. Huffman This is a 63F with a PMH of gastric ulcers and HCV. She presents today with 2 episodes of coffee ground emesis that started at noon. Last episode was at 2pm. She reports that this happened once before in October when she was admitted for coffee ground emesis she had an EGD which was significant for a prepyloric gastric ulcer. She received a one month course of PPIs and followed up with GI for treatment of her HCV. She denies any gross hematemsis. She reports melanotic stools. She denies any abdominal pain. Denies any chest pain or SOB. PMH: HCV, Gastric Ulcers PSH: Denies ALL: NKDA Social: Denies Review of Systems - Review of Systems All systems: reviewed and no additional remarkable complaints except Review of Systems: 12 point review of symptoms negative except for coffee ground emesis. Past Patient History - Past Medical History & Family History Past Medical History?: Yes - Past Social History Smoking Status: Never Smoked - CARDIAC Hx Cardiac Disorders: No - PULMONARY Hx Respiratory Disorders: No - NEUROLOGICAL Hx Neurological Disorder: No - HEENT Hx HEENT Problems: No - RENAL Hx Chronic Kidney Disease: No - ENDOCRINE/METABOLIC Hx Endocrine Disorders: No - HEMATOLOGICAL/ONCOLOGICAL Hx Blood Disorders: Yes Hx Hepatitis C: Yes - INTEGUMENTARY Hx Dermatological Problems: No - MUSCULOSKELETAL/RHEUMATOLOGICAL Hx Musculoskeletal Disorders: Yes Hx Arthritis: Yes Hx Falls: No - GASTROINTESTINAL Hx Gastrointestinal Disorders: No - GENITOURINARY/GYNECOLOGICAL Hx Genitourinary Disorders: No - PSYCHIATRIC Hx Psychophysiologic Disorder: No Hx Substance Use: No - SURGICAL HISTORY Hx Surgeries: No - ANESTHESIA Hx Anesthesia: No Meds Allergies/Adverse Reactions: Allergies Allergy/AdvReac Type Severity Reaction Status Date / Time No Known Allergies Allergy Unverified 05/22/18 15:09 - Medications Medications: Current Medications Potassium Chloride/Dextrose/Sod Cl (Potassium Chl 20 Meq In D5-1/2ns) 1,000 mls @ 50 mls/hr IV .Q20H TARYN Last Admin: 05/22/18 21:17 Dose: 50 mls/hr Pantoprazole Sodium (Protonix Inj) 40 mg IVP DAILY TARYN Physical Exam - Constitutional Appears: Non-toxic, No Acute Distress - Head Exam Head Exam: ATRAUMATIC, NORMOCEPHALIC - Eye Exam Eye Exam: EOMI, Normal appearance - ENT Exam ENT Exam: Mucous Membranes Moist - Respiratory Exam Respiratory Exam: NORMAL BREATHING PATTERN - Cardiovascular Exam Cardiovascular Exam: +S1, +S2 - GI/Abdominal Exam GI & Abdominal Exam: Soft. absent: Distended, Firm, Guarding, Hernia, Rigid - Neurological Exam Neurological exam: Alert, Oriented x3 - Psychiatric Exam Psychiatric exam: Normal Affect, Normal Mood - Skin Skin Exam: Dry, Intact Results - Vital Signs Recent Vital Signs: Last Vital Signs Temp 98.3 F 05/22/18 23:15 Pulse 95 H 05/22/18 23:15 Resp 20 05/22/18 23:15 BP 124/63 05/22/18 23:15 Pulse Ox 95 05/22/18 23:15 - Labs Result Diagrams: 05/22/18 15:33 05/22/18 15:33 Labs: Laboratory Results - last 24 hr 05/22/18 05/22/18 05/22/18 15:33 15:33 15:33 WBC 13.6 H D RBC 3.48 L Hgb 11.1 D Hct 33.4 L MCV 96.1 D MCH 32.0 H MCHC 33.2 RDW 13.5 Plt Count 199 MPV 9.5 Neut % (Auto) 79.7 H Lymph % (Auto) 14.6 L [place] % (Auto) 4.8 Eos % (Auto) 0.2 Baso % (Auto) 0.7 Neut # (Auto) 10.8 H Lymph # (Auto) 2.0 [place] # (Auto) 0.7 Eos # (Auto) 0.0 Baso # (Auto) 0.1 PT 16.2 H INR 1.5 APTT 33 Sodium 144 Potassium 3.8 Chloride 109 H Carbon Dioxide 25 Anion Gap 14 BUN 28 H Creatinine 0.7 Est GFR ( Amer) > 60 Est GFR (Non-Af Amer) > 60 Random Glucose 148 H Calcium 8.8 Total Bilirubin 1.5 H AST 43 H D ALT 34 Alkaline Phosphatase 103 Troponin I 0.0590 Total Protein 7.2 Albumin 3.5 D Globulin 3.7 Albumin/Globulin Ratio 0.9 L Lipase 71 Urine Color Urine Clarity Urine pH Ur Specific [place] Urine Protein Urine Glucose (UA) Urine Ketones Urine Blood Urine Nitrate Urine Bilirubin Urine Urobilinogen Ur Leukocyte Esterase Urine WBC (Auto) Urine RBC (Auto) Ur Squamous Epith Cells 05/22/18 15:33 WBC RBC Hgb Hct MCV MCH MCHC RDW Plt Count MPV Neut % (Auto) Lymph % (Auto) [place] % (Auto) Eos % (Auto) Baso % (Auto) Neut # (Auto) Lymph # (Auto) [place] # (Auto) Eos # (Auto) Baso # (Auto) PT INR APTT Sodium Potassium Chloride Carbon Dioxide Anion Gap BUN Creatinine Est GFR ( Amer) Est GFR (Non-Af Amer) Random Glucose Calcium Total Bilirubin AST ALT Alkaline Phosphatase Troponin I Total Protein Albumin Globulin Albumin/Globulin Ratio Lipase Urine Color Yellow Urine Clarity Clear Urine pH 7.0 Ur Specific [place] 1.017 Urine Protein Negative Urine Glucose (UA) Normal Urine Ketones Trace Urine Blood 2+ H Urine Nitrate Negative Urine Bilirubin Negative Urine Urobilinogen Normal Ur Leukocyte Esterase Neg Urine WBC (Auto) 1 Urine RBC (Auto) 6 H Ur Squamous Epith Cells < 1 Assessment & Plan - Assessment and Plan (Free Text) Assessment: 63F with GI bleed Plan: Hold DVT ppx F/U GI recs Transfuse prn continue managment per primary team further recs per Dr. Nathanael Alicia PGY3
[2018-05-23 07:56] LABS: MEAN CELL VOLUME 96.7 fL (81.0-99.0); MEAN CORPUSCULAR HEMOGLOBIN 32.2 pg (27.0-31.0); MEAN CORPUSCULAR HGB CONC 33.2 g/dL (33.0-37.0); MEAN PLATELET VOLUME 9.4 fL (7.2-11.7); RBC 2.69 Mil/uL (3.80-5.20); RED CELL DISTRIBUTION WIDTH 13.1 % (11.5-14.5); WHITE BLOOD COUNT 11.7 K/uL (4.8-10.8)
[2018-05-23 07:58] LABS: HEMOGLOBIN 8.7 g/dL (11.0-16.0)
--- NOTE | 2018-05-23 08:14 | CP.PCM.PN ---
Subjective - Date & Time of Evaluation Date of Evaluation: 05/23/18 Time of Evaluation: 08:13 - Subjective Subjective: Hct decreased 10/20 gastric ulcer inr 1.5 needs fu endoscopy no surgical plan yet Objective - Vital Signs/Intake and Output Vital Signs (last 24 hours): Temp Pulse Resp BP Pulse Ox 98.1 F 80 20 111/70 96 05/23/18 08:00 05/23/18 08:00 05/23/18 08:00 05/23/18 08:00 05/23/18 08:00 Intake and Output: 05/23/18 05/23/18 06:59 18:59 Intake Total 800 Balance 800 - Medications Medications: Current Medications Potassium Chloride/Dextrose/Sod Cl (Potassium Chl 20 Meq In D5-1/2ns) 1,000 mls @ 50 mls/hr IV .Q20H [facility] Last Admin: 05/22/18 21:17 Dose: 50 mls/hr Pantoprazole Sodium (Protonix Inj) 40 mg IVP Q12 TAYRN - Labs Labs: 05/23/18 07:36 05/22/18 15:33 PT 16.2 SECONDS (9.7-12.2) H 05/22/18 15:33 INR 1.5 05/22/18 15:33 APTT 33 SECONDS (21-34) 05/22/18 15:33
--- NOTE | 2018-05-23 10:17 | CP.PCM.CON ---
<Jasson Stinson - Last Filed: 05/23/18 10:29> History of Present Illness - History of Present Illness History of Present Illness: GI Fellow PGY4, consult note Consulted for Coffee ground emesis. Mouna Pintoum with pmhx of recent treatment completion of HCV, upper gi bleed, gastric ulcers presenting with 4 episodes of coffee ground emesis. Pt admits melena. Denies SOB, CP, abdominal pain, fever. Previous EGD 10/20 with gastric ulcer. She was taken off all NSAIDs and placed on PPI. She had follow up EGD at [facility] which showed normal findings. She was taken off PPI at that time. She has been treated for HCV at [facility] and next appointment in July. PmHx: As Stated in HPI PsHx: Denies, see above. SHx: Denies tobacco, etoh, drug use FHx: Denies colon, liver or pancreatic cancer 12pt ROS completed and negative except for above. Past Patient History - Past Medical History & Family History Past Medical History?: Yes - Past Social History Smoking Status: Never Smoked - CARDIAC Hx Cardiac Disorders: No - PULMONARY Hx Respiratory Disorders: No - NEUROLOGICAL Hx Neurological Disorder: No - HEENT Hx HEENT Problems: No - RENAL Hx Chronic Kidney Disease: No - ENDOCRINE/METABOLIC Hx Endocrine Disorders: No - HEMATOLOGICAL/ONCOLOGICAL Hx Blood Disorders: Yes Hx Hepatitis C: Yes - INTEGUMENTARY Hx Dermatological Problems: No - MUSCULOSKELETAL/RHEUMATOLOGICAL Hx Musculoskeletal Disorders: Yes Hx Arthritis: Yes Hx Falls: No - GASTROINTESTINAL Hx Gastrointestinal Disorders: No - GENITOURINARY/GYNECOLOGICAL Hx Genitourinary Disorders: No - PSYCHIATRIC Hx Psychophysiologic Disorder: No Hx Substance Use: No - SURGICAL HISTORY Hx Surgeries: No - ANESTHESIA Hx Anesthesia: No Meds Allergies/Adverse Reactions: Allergies Allergy/AdvReac Type Severity Reaction Status Date / Time No Known Allergies Allergy Unverified 05/22/18 15:09 - Medications Medications: Current Medications Potassium Chloride/Dextrose/Sod Cl (Potassium Chl 20 Meq In D5-1/2ns) 1,000 mls @ 50 mls/hr IV .Q20H [facility] Last Admin: 05/22/18 21:17 Dose: 50 mls/hr Pantoprazole Sodium (Protonix Inj) 40 mg IVP Q12 TARYN Last Admin: 05/23/18 09:42 Dose: 40 mg Physical Exam - Constitutional Appears: Well, Non-toxic, No Acute Distress - Head Exam Head Exam: ATRAUMATIC, NORMAL INSPECTION, NORMOCEPHALIC - Eye Exam Eye Exam: EOMI, Normal appearance, PERRL - ENT Exam ENT Exam: Mucous Membranes Moist, Normal Exam - Respiratory Exam Respiratory Exam: Clear to Auscultation Bilateral, NORMAL BREATHING PATTERN. absent: Wheezes - Cardiovascular Exam Cardiovascular Exam: REGULAR RHYTHM, +S1, +S2 - GI/Abdominal Exam GI & Abdominal Exam: Normal Bowel Sounds, Soft. absent: Organomegaly, Tenderness - Rectal Exam Rectal Exam: NORMAL INSPECTION - Extremities Exam Extremities exam: Positive for: normal inspection - Neurological Exam Neurological exam: Alert, CN II-XII Intact, Oriented x3 - Psychiatric Exam Psychiatric exam: Normal Affect, Normal Mood - Skin Skin Exam: Dry, Intact Results - Vital Signs Recent Vital Signs: Last Vital Signs Temp 98.1 F 05/23/18 08:00 Pulse 80 05/23/18 08:00 Resp 20 05/23/18 08:00 BP 111/70 05/23/18 08:00 Pulse Ox 96 05/23/18 08:00 - Labs Result Diagrams: 05/23/18 07:36 05/22/18 15:33 Labs: Laboratory Results - last 24 hr 05/22/18 05/22/18 05/22/18 15:33 15:33 15:33 WBC 13.6 H D RBC 3.48 L Hgb 11.1 D Hct 33.4 L MCV 96.1 D MCH 32.0 H MCHC 33.2 RDW 13.5 Plt Count 199 MPV 9.5 Neut % (Auto) 79.7 H Lymph % (Auto) 14.6 L [place] % (Auto) 4.8 Eos % (Auto) 0.2 Baso % (Auto) 0.7 Neut # (Auto) 10.8 H Lymph # (Auto) 2.0 [place] # (Auto) 0.7 Eos # (Auto) 0.0 Baso # (Auto) 0.1 PT 16.2 H INR 1.5 APTT 33 Sodium 144 Potassium 3.8 Chloride 109 H Carbon Dioxide 25 Anion Gap 14 BUN 28 H Creatinine 0.7 Est GFR ( Amer) > 60 Est GFR (Non-Af Amer) > 60 Random Glucose 148 H Calcium 8.8 Total Bilirubin 1.5 H AST 43 H D ALT 34 Alkaline Phosphatase 103 Troponin I 0.0590 Total Protein 7.2 Albumin 3.5 D Globulin 3.7 Albumin/Globulin Ratio 0.9 L Lipase 71 Urine Color Urine Clarity Urine pH Ur Specific [place] Urine Protein Urine Glucose (UA) Urine Ketones Urine Blood Urine Nitrate Urine Bilirubin Urine Urobilinogen Ur Leukocyte Esterase Urine WBC (Auto) Urine RBC (Auto) Ur Squamous Epith Cells 05/22/18 05/23/18 15:33 07:36 WBC 11.7 H RBC 2.69 L Hgb 8.7 L D Hct 26.1 L MCV 96.7 MCH 32.2 H MCHC 33.2 RDW 13.1 Plt Count 160 MPV 9.4 Neut % (Auto) Lymph % (Auto) [place] % (Auto) Eos % (Auto) Baso % (Auto) Neut # (Auto) Lymph # (Auto) [place] # (Auto) Eos # (Auto) Baso # (Auto) PT INR APTT Sodium Potassium Chloride Carbon Dioxide Anion Gap BUN Creatinine Est GFR ( Amer) Est GFR (Non-Af Amer) Random Glucose Calcium Total Bilirubin AST ALT Alkaline Phosphatase Troponin I Total Protein Albumin Globulin Albumin/Globulin Ratio Lipase Urine Color Yellow Urine Clarity Clear Urine pH 7.0 Ur Specific [place] 1.017 Urine Protein Negative Urine Glucose (UA) Normal Urine Ketones Trace Urine Blood 2+ H Urine Nitrate Negative Urine Bilirubin Negative Urine Urobilinogen Normal Ur Leukocyte Esterase Neg Urine WBC (Auto) 1 Urine RBC (Auto) 6 H Ur Squamous Epith Cells < 1 Assessment & Plan - Assessment and Plan (Free Text) Assessment: 63F with hx of Treated HCV, gastric ulcers presenting with anemia, coffee ground emesis and melena likely due to upper GI bleed. #Acute blood loss anemia due to GI bleed #HCV - treated, f/u at [facility] #Hepatosteatosis - abdominal u/s 10/20 did not describe cirrhosis or ascites. Plan: -Afeb/HDS -Continue supportive care -Continue PPI BID -No signs of decompensated cirrhosis on exam, previous imaging or previous EGD. Hold Octreotide, Rocephin -Trend Hb q12h. Transfuse as needed for Hb greater than 7. -Avoid NSAIDs, anticoag, antiplt. -EGD today -Further recommendations pending course and endoscopic findings. -F/U HCV treatment at [facility] - Date & Time Date: 05/23/18 Time: 10:19 <Bertha Robledo - Last Filed: 05/23/18 11:45> Meds - Medications Medications: Current Medications Potassium Chloride/Dextrose/Sod Cl (Potassium Chl 20 Meq In D5-1/2ns) 1,000 mls @ 50 mls/hr IV .Q20H [facility] Last Admin: 05/22/18 21:17 Dose: 50 mls/hr Pantoprazole Sodium (Protonix Inj) 40 mg IVP Q12 [facility] Last Admin: 05/23/18 09:42 Dose: 40 mg Results - Vital Signs Recent Vital Signs: Last Vital Signs Temp 98.1 F 05/23/18 10:44 Pulse 89 05/23/18 10:44 Resp 20 05/23/18 10:44 BP 111/66 05/23/18 10:44 Pulse Ox 95 05/23/18 10:44 - Labs Result Diagrams: 05/23/18 07:36 05/22/18 15:33 Labs: Laboratory Results - last 24 hr 05/22/18 05/22/18 05/22/18 15:33 15:33 15:33 WBC 13.6 H D RBC 3.48 L Hgb 11.1 D Hct 33.4 L MCV 96.1 D MCH 32.0 H MCHC 33.2 RDW 13.5 Plt Count 199 MPV 9.5 Neut % (Auto) 79.7 H Lymph % (Auto) 14.6 L [place] % (Auto) 4.8 Eos % (Auto) 0.2 Baso % (Auto) 0.7 Neut # (Auto) 10.8 H Lymph # (Auto) 2.0 [place] # (Auto) 0.7 Eos # (Auto) 0.0 Baso # (Auto) 0.1 PT 16.2 H INR 1.5 APTT 33 Sodium 144 Potassium 3.8 Chloride 109 H Carbon Dioxide 25 Anion Gap 14 BUN 28 H Creatinine 0.7 Est GFR ( Amer) > 60 Est GFR (Non-Af Amer) > 60 Random Glucose 148 H Calcium 8.8 Total Bilirubin 1.5 H AST 43 H D ALT 34 Alkaline Phosphatase 103 Troponin I 0.0590 Total Protein 7.2 Albumin 3.5 D Globulin 3.7 Albumin/Globulin Ratio 0.9 L Lipase 71 Urine Color Urine Clarity Urine pH Ur Specific [place] Urine Protein Urine Glucose (UA) Urine Ketones Urine Blood Urine Nitrate Urine Bilirubin Urine Urobilinogen Ur Leukocyte Esterase Urine WBC (Auto) Urine RBC (Auto) Ur Squamous Epith Cells 05/22/18 05/23/18 15:33 07:36 WBC 11.7 H RBC 2.69 L Hgb 8.7 L D Hct 26.1 L MCV 96.7 MCH 32.2 H MCHC 33.2 RDW 13.1 Plt Count 160 MPV 9.4 Neut % (Auto) Lymph % (Auto) [place] % (Auto) Eos % (Auto) Baso % (Auto) Neut # (Auto) Lymph # (Auto) [place] # (Auto) Eos # (Auto) Baso # (Auto) PT INR APTT Sodium Potassium Chloride Carbon Dioxide Anion Gap BUN Creatinine Est GFR ( Amer) Est GFR (Non-Af Amer) Random Glucose Calcium Total Bilirubin AST ALT Alkaline Phosphatase Troponin I Total Protein Albumin Globulin Albumin/Globulin Ratio Lipase Urine Color Yellow Urine Clarity Clear Urine pH 7.0 Ur Specific [place] 1.017 Urine Protein Negative Urine Glucose (UA) Normal Urine Ketones Trace Urine Blood 2+ H Urine Nitrate Negative Urine Bilirubin Negative Urine Urobilinogen Normal Ur Leukocyte Esterase Neg Urine WBC (Auto) 1 Urine RBC (Auto) 6 H Ur Squamous Epith Cells < 1 Attending/Attestation - Attestation I have personally seen and examined this patient.: Yes I have fully participated in the care of the patient.: Yes I have reviewed all pertinent clinical information: Yes Notes (Text): 05/23/18 11:43 Patient seen and examined with GI fellow at bedside. This is a 63 year old F with history of treated HCV, gastric ulcers presenting with anemia, coffee ground emesis and melena likely due to upper GI bleed with drop in hb. Will plan on emergent EGD today. NPO. No s/s of decompensated cirrhosis. Will send hepatitis viralo load to document SVR.
[2018-05-23] MEDS ORDERED: Lactated Ringer's 1,000 ML IV ONE (13:05)
[2018-05-23] MEDS ORDERED: Propofol 10 mg/ml Inj (20 ML) ONE ×2 (13:07→13:08)
[2018-05-23 20:15] LABS: BASO # 0.1 K/uL (0.0-0.2); BASO % 1.3 % (0.0-2.0); EOS # 0.2 K/uL (0.0-0.7); EOS % 2.5 % (0.0-4.0); LYMPH # 3.3 K/uL (1.0-4.3); LYMPH % 36.3 % (20.0-40.0); MEAN CELL VOLUME 97.7 fL (81.0-99.0); MEAN CORPUSCULAR HEMOGLOBIN 32.9 pg (27.0-31.0); MEAN CORPUSCULAR HGB CONC 33.6 g/dL (33.0-37.0); MEAN PLATELET VOLUME 9.6 fL (7.2-11.7); MONO # 0.4 K/uL (0.0-0.8); MONO % 4.5 % (0.0-10.0); NEUT % 55.4 % (50.0-75.0); NRBC % 0.1 % (0.0-2.0); RBC 2.43 Mil/uL (3.80-5.20); RED CELL DISTRIBUTION WIDTH 13.5 % (11.5-14.5); WHITE BLOOD COUNT 9.1 K/uL (4.8-10.8)
--- NOTE | 2018-05-23 20:58 | CP.PCM.HP ---
Past Patient History - Past Medical History & Family History Past Medical History?: Yes - Past Social History Smoking Status: Never Smoked - CARDIAC Hx Cardiac Disorders: No - PULMONARY Hx Respiratory Disorders: No - NEUROLOGICAL Hx Neurological Disorder: No - HEENT Hx HEENT Problems: No - RENAL Hx Chronic Kidney Disease: No - ENDOCRINE/METABOLIC Hx Endocrine Disorders: No - HEMATOLOGICAL/ONCOLOGICAL Hx Blood Disorders: Yes Hx Hepatitis C: Yes - INTEGUMENTARY Hx Dermatological Problems: No - MUSCULOSKELETAL/RHEUMATOLOGICAL Hx Musculoskeletal Disorders: Yes Hx Arthritis: Yes Hx Falls: No - GASTROINTESTINAL Hx Gastrointestinal Disorders: No - GENITOURINARY/GYNECOLOGICAL Hx Genitourinary Disorders: No - PSYCHIATRIC Hx Psychophysiologic Disorder: No Hx Substance Use: No - SURGICAL HISTORY Hx Surgeries: No - ANESTHESIA Hx Anesthesia: No Meds Allergies/Adverse Reactions: Allergies Allergy/AdvReac Type Severity Reaction Status Date / Time No Known Allergies Allergy Unverified 05/22/18 15:09 Physical Exam - Constitutional Appears: Well - Head Exam Head Exam: ATRAUMATIC, NORMAL INSPECTION, NORMOCEPHALIC - Eye Exam Eye Exam: EOMI, Normal appearance, PERRL Pupil Exam: NORMAL ACCOMODATION, PERRL - ENT Exam ENT Exam: Mucous Membranes Moist, Normal Exam - Neck Exam Neck exam: Positive for: Normal Inspection - Respiratory Exam Respiratory Exam: Decreased Breath Sounds - Cardiovascular Exam Cardiovascular Exam: REGULAR RHYTHM, +S1, +S2 - GI/Abdominal Exam GI & Abdominal Exam: Diminished Bowel Sounds, Soft - Rectal Exam Rectal Exam: Deferred Results - Vital Signs Recent Vital Signs: Last Vital Signs Temp 98.2 F 05/23/18 15:00 Pulse 73 05/23/18 15:00 Resp 20 05/23/18 15:00 BP 107/66 05/23/18 15:00 Pulse Ox 97 05/23/18 15:00 - Labs Result Diagrams: 05/23/18 20:05 05/22/18 15:33 Labs: Laboratory Results - last 24 hr 05/23/18 05/23/18 07:36 20:05 WBC 11.7 H 9.1 RBC 2.69 L 2.43 L Hgb 8.7 L D 8.0 L Hct 26.1 L 23.7 L MCV 96.7 97.7 MCH 32.2 H 32.9 H MCHC 33.2 33.6 RDW 13.1 13.5 Plt Count 160 137 MPV 9.4 9.6 Neut % (Auto) 55.4 Lymph % (Auto) 36.3 [place] % (Auto) 4.5 Eos % (Auto) 2.5 Baso % (Auto) 1.3 Neut # (Auto) 5.0 Lymph # (Auto) 3.3 [place] # (Auto) 0.4 Eos # (Auto) 0.2 Baso # (Auto) 0.1
[2018-05-23] MEDS: Potassium Ch 20mEq in D5-1/2NS 1,000 ML IV SCH (21:20)
--- NOTE | 2018-05-24 02:17 | CON ---
DATE: 05/23/2018 CARDIOLOGY CONSULT HISTORY OF PRESENT ILLNESS: The patient was seen in endoscopy suite prior to her undergoing upper endoscopy and daughter at the bedside was able to translate for me. The patient is a 63-year-old [place] female who recently treated for hepatitis C, has history of GI bleeding, and underwent an endoscopy in December of this year, history of prepyloric ulcer, never required blood transfusion in the past. She presented because of coffee-ground vomiting and epigastric discomfort. According to the daughter, there is no prior history of coronary artery disease. The patient denies any retrosternal chest pain at this time. SOCIAL HISTORY: Nonsmoker, nondrinker. MEDICATIONS: Protonix 40 mg intravenously twice a day. REVIEW OF SYSTEMS: No fever or chills. No dizziness or syncope, and no history of palpitation. PAST MEDICAL HISTORY: Prepyloric ulcer, hepatitis C PHYSICAL EXAMINATION: GENERAL: The patient is a middle-aged female who does not appear to be in any distress. VITAL SIGNS: Blood pressure 100/56, heart rate 76, temperature 97.6, respirations 20. HEENT: Pale conjunctiva. CHEST: Clear. HEART: S1, S2 regular. ABDOMEN: Soft. EXTREMITIES: No edema. LABORATORY DATA: Today's hemoglobin and hematocrit 8.7 and 26.1, it drop from 11.1 and 33.4 on admission yesterday. Today's white count is 11.7. Platelet count 160,000. SMA-7, sodium 144, potassium 3.8, chloride 109, CO2 of 25, glucose 148, BUN 28, creatinine 0.7. Troponin 0.059. Lipase is within normal limits. No EKG is found in the [employer] database. Endoscopy report, impression, is normal esophagus and Z-line regular. No bleeding, gastric ulcer. No stigmata of bleeding. of gastropathy biopsied, normal duodenum bulb, and second portion of the duodenum biopsied. Recommendations: Continue current medications. Await biopsy report for liquid diet. Echocardiographic study performed in October of last year revealed borderline concentric LVH with normal systolic function and grade 1 abnormal relaxation pattern. ASSESSMENT: 1. Left ventricular diastolic dysfunction. 2. Gastrointestinal bleeding and anemia. 3. Mildly elevated total bilirubin. 4. History of hepatitis C, recently treated RECOMMENDATIONS: Continue current IV Protonix. Obtain 12-lead EKG which I did order yesterday but I would order again today. Jaswinder Shankar MD
[2018-05-24 07:46] LABS: BASO # 0.1 K/uL (0.0-0.2); BASO % 0.8 % (0.0-2.0); EOS # 0.3 K/uL (0.0-0.7); EOS % 3.8 % (0.0-4.0); LYMPH # 2.8 K/uL (1.0-4.3); LYMPH % 36.7 % (20.0-40.0); MEAN CELL VOLUME 97.5 fL (81.0-99.0); MEAN CORPUSCULAR HEMOGLOBIN 32.5 pg (27.0-31.0); MEAN CORPUSCULAR HGB CONC 33.4 g/dL (33.0-37.0); MEAN PLATELET VOLUME 9.1 fL (7.2-11.7); MONO # 0.4 K/uL (0.0-0.8); MONO % 4.8 % (0.0-10.0); NEUT # 4.1 K/uL (1.8-7.0); NEUT % 53.9 % (50.0-75.0); NRBC % 0.1 % (0.0-2.0); RBC 2.47 Mil/uL (3.80-5.20); RED CELL DISTRIBUTION WIDTH 13.2 % (11.5-14.5); WHITE BLOOD COUNT 7.6 K/uL (4.8-10.8)
--- NOTE | 2018-05-24 08:06 | CP.PCM.PN ---
<Nani Fleming - Last Filed: 05/24/18 08:03> Subjective - Date & Time of Evaluation Date of Evaluation: 05/24/18 Time of Evaluation: 07:00 - Subjective Subjective: GI Fellow PGY5 Progress Note Pt seen and evaluated at bedside, pt doing well with no complaints of rectal bleeding, N/V. Pt tolerating diet with no GI complaints at this time. ROS: A 12pt ROS was negative except as above Objective - Vital Signs/Intake and Output Vital Signs (last 24 hours): Temp Pulse Resp BP Pulse Ox 97.9 F 77 24 105/65 95 05/24/18 00:00 05/24/18 01:00 05/24/18 00:00 05/24/18 04:40 05/24/18 00:00 Intake and Output: 05/24/18 05/24/18 06:59 18:59 Intake Total 1240 Balance 1240 - Medications Medications: Current Medications Potassium Chloride/Dextrose/Sod Cl (Potassium Chl 20 Meq In D5-1/2ns) 1,000 mls @ 50 mls/hr IV .Q20H TARYN Last Admin: 05/23/18 21:20 Dose: 50 mls/hr Pantoprazole Sodium (Protonix Ec Tab) 40 mg PO DAILY TARYN - Labs Labs: 05/24/18 07:36 05/22/18 15:33 PT 16.2 SECONDS (9.7-12.2) H 05/22/18 15:33 INR 1.5 05/22/18 15:33 APTT 33 SECONDS (21-34) 05/22/18 15:33 - Constitutional Appears: Non-toxic, No Acute Distress - Head Exam Head Exam: ATRAUMATIC, NORMAL INSPECTION, NORMOCEPHALIC - Eye Exam Eye Exam: EOMI, Normal appearance, PERRL - ENT Exam ENT Exam: Mucous Membranes Moist - Neck Exam Neck Exam: Full ROM, Normal Inspection - Respiratory Exam Respiratory Exam: Clear to Ausculation Bilateral, NORMAL BREATHING PATTERN - Cardiovascular Exam Cardiovascular Exam: REGULAR RHYTHM, RRR - GI/Abdominal Exam GI & Abdominal Exam: Soft, Normal Bowel Sounds. absent: Distended, Guarding, Tenderness - Rectal Exam Rectal Exam: Deferred - Extremities Exam Extremities Exam: Full ROM, Normal Inspection - Back Exam Back Exam: NORMAL INSPECTION - Neurological Exam Neurological Exam: Alert, Awake, Oriented x3 - Psychiatric Exam Psychiatric exam: Normal Affect, Normal Mood - Skin Skin Exam: Dry, Intact, Normal Color, Warm Assessment and Plan - Assessment and Plan (Free Text) Assessment: This is a 63F with hx of Treated HCV, gastric ulcers presenting with anemia, coffee ground emesis and melena likely due to upper GI bleed. 1. Anemia 2. Gastric ulcer 3. HCV - treated, f/u at [facility] 4. Hepatosteatosis - abdominal u/s 10/20 did not describe cirrhosis or ascites. Plan: -Continue supportive care -Pt hemodynamically stable with no active GI bleeding -s/p EGD with clean based gastric ulcer with no active bleeding [place] Class III -Continue PPI po daily -No signs of decompensated cirrhosis -Trend Hb, stable at 8.0 with no active bleeding -Avoid NSAIDs, anticoag, antiplt. -Pt will need outpt colonoscopy -F/U HCV treatment at [facility] -From GI perspective, pt okay for discharge home today <Bertha Robledo - Last Filed: 05/24/18 09:06> Objective - Vital Signs/Intake and Output Vital Signs (last 24 hours): Temp Pulse Resp BP Pulse Ox 97.6 F 84 20 106/66 100 05/24/18 07:00 05/24/18 07:00 05/24/18 07:00 05/24/18 07:00 05/24/18 07:00 Intake and Output: 05/24/18 05/24/18 06:59 18:59 Intake Total 1240 Balance 1240 - Medications Medications: Current Medications Potassium Chloride/Dextrose/Sod Cl (Potassium Chl 20 Meq In D5-1/2ns) 1,000 mls @ 50 mls/hr IV .Q20H TARYN Last Admin: 05/23/18 21:20 Dose: 50 mls/hr Pantoprazole Sodium (Protonix Ec Tab) 40 mg PO DAILY TARYN - Labs Labs: 05/24/18 07:36 05/24/18 07:36 PT 16.2 SECONDS (9.7-12.2) H 05/22/18 15:33 INR 1.5 05/22/18 15:33 APTT 33 SECONDS (21-34) 05/22/18 15:33 Attending/Attestation - Attestation I have personally seen and examined this patient.: Yes I have fully participated in the care of the patient.: Yes I have reviewed all pertinent clinical information, including history, physical exam and plan: Yes Notes (Text): 05/24/18 09:04 Patient seen and examined with GI fellow at bedside. This is a 63 year old F with history of treated HCV, gastric ulcers presenting with anemia, coffee ground emesis and melena likely due to upper GI bleed with drop in hb s/p emergent EGD yesterday that showed non bleeding clean based ulcer. No s/s of decompensated cirrhosis. PPI daily and follow as outpatient for biopsies. Can be discharged on regular diet with outpatient follow up. Thank you for letting us participate in the care of your patient
[2018-05-24 08:10] LABS: ALB/GLOB RATIO 0.8 (1.0-2.1); ALBUMIN 2.4 g/dL (3.5-5.0); ALT/SGPT 34 U/L (9-52); AST/SGOT 37 U/L (14-36); BLOOD UREA NITROGEN 18 mg/dL (7-17); CALCIUM 7.9 mg/dl (8.6-10.4); GFR AFRICAN-AMERICAN > 60; GFR NON-AFRICAN AMERICAN > 60
[2018-05-24 08:21] VITALS: BP 106/66; RESP 20; TEMP 97.6; O2SAT 100
--- NOTE | 2018-05-24 08:49 | CP.PCM.PN ---
Subjective - Date & Time of Evaluation Date of Evaluation: 05/24/18 Time of Evaluation: 08:00 - Subjective Subjective: Patient seen and examined. No acute events over night. Denies having any bloody movements. Denies nausea/vomiting, abdominal pain. States she feels better. Objective - Vital Signs/Intake and Output Vital Signs (last 24 hours): Temp Pulse Resp BP Pulse Ox 97.6 F 84 20 106/66 100 05/24/18 07:00 05/24/18 07:00 05/24/18 07:00 05/24/18 07:00 05/24/18 07:00 Intake and Output: 05/24/18 05/24/18 06:59 18:59 Intake Total 1240 Balance 1240 - Medications Medications: Current Medications Potassium Chloride/Dextrose/Sod Cl (Potassium Chl 20 Meq In D5-1/2ns) 1,000 mls @ 50 mls/hr IV .Q20H TARYN Last Admin: 05/23/18 21:20 Dose: 50 mls/hr Pantoprazole Sodium (Protonix Ec Tab) 40 mg PO DAILY TARYN - Labs Labs: 05/24/18 07:36 05/24/18 07:36 PT 16.2 SECONDS (9.7-12.2) H 05/22/18 15:33 INR 1.5 05/22/18 15:33 APTT 33 SECONDS (21-34) 05/22/18 15:33 - Constitutional Appears: No Acute Distress - Head Exam Head Exam: NORMOCEPHALIC - Eye Exam Eye Exam: Normal appearance - ENT Exam ENT Exam: Mucous Membranes Moist - Respiratory Exam Respiratory Exam: NORMAL BREATHING PATTERN - Cardiovascular Exam Cardiovascular Exam: +S1, +S2 - GI/Abdominal Exam GI & Abdominal Exam: Soft. absent: Distended, Firm, Guarding, Rigid, Tenderness - Neurological Exam Neurological Exam: Alert, Awake, Oriented x3 - Psychiatric Exam Psychiatric exam: Normal Mood - Skin Skin Exam: Dry, Intact, Warm Assessment and Plan - Assessment and Plan (Free Text) Assessment: 63F with GI bleed Plan: No plan for surgical intervention at this present time F/u EGD biopsy results Monitor bowel movements Hgb stable transfuse prn Further recs per Dr. Nathanael Antony PGY3
[2018-05-24] MEDS ORDERED: Pantoprazole 40 mg EC Tab PO SCH (10:00)
[2018-05-24 12:33] VITALS: PULSE 77
--- NOTE | 2018-05-24 13:08 | CP.PCM.PN ---
Subjective - Date & Time of Evaluation Date of Evaluation: 05/24/18 Time of Evaluation: 13:08 - Subjective Subjective: PATIENT WAS ADMITTED FOR UPPER GI BLEED DENIES VOMITING/ NAUSEA/ CHEST PAIN OR SOB Objective - Vital Signs/Intake and Output Vital Signs (last 24 hours): Temp Pulse Resp BP Pulse Ox 97.6 F 77 20 106/66 100 05/24/18 07:00 05/24/18 12:25 05/24/18 07:00 05/24/18 07:00 05/24/18 07:00 Intake and Output: 05/24/18 05/24/18 06:59 18:59 Intake Total 1240 Balance 1240 - Medications Medications: Current Medications Potassium Chloride/Dextrose/Sod Cl (Potassium Chl 20 Meq In D5-1/2ns) 1,000 mls @ 50 mls/hr IV .Q20H [facility] Last Admin: 05/23/18 21:20 Dose: 50 mls/hr Pantoprazole Sodium (Protonix Ec Tab) 40 mg PO DAILY [facility] Last Admin: 05/24/18 09:33 Dose: 40 mg - Labs Labs: 05/24/18 07:36 05/24/18 07:36 PT 16.2 SECONDS (9.7-12.2) H 05/22/18 15:33 INR 1.5 05/22/18 15:33 APTT 33 SECONDS (21-34) 05/22/18 15:33 Assessment and Plan - Assessment and Plan (Free Text) Assessment: PATIENT SEEN AND EXAMINED AT THE BEDSIDE LUNG SOUND CLEAR ARAM ABD SOFT NONDISTENDED Pt hemodynamically stable with no active GI bleeding -s/p EGD with clean based gastric ulcer with no active bleeding [place] Class III DISCUSS WITH DR KENDY TYLER CLEAR FOR DC FOLLOW UP WITH DR Franklyn LARRY IN 1-2 WEEK AT HIS OFFICE --CALL FOR APPOINTMENT FOLLOW UP WITH 1-2 WEEK AT HIS OFFICE ---CALL FOR APPOINTMENT] ADDRESS YOUR COLONOSCOPY AT YOUR VISIT CONTINUE HOME MEDICATION NEW PRESCRIPTION GIVEN FERROUS TAB DAILY PROTONIX 40 MG PO DAILY COLACE ONE TAB PO BID ACITIVITY TOLERATED CALL DR Franklyn HOLLOWAY GO TO THE EMERGENCY ROOM IF SYMPTOMS RETURN OR WORSENING DISCUSS WITH PATIENT WHO AGREE AND VERBALIZED UNDERSTANDING
--- NOTE | 2018-05-24 18:43 | PN ---
DATE: 05/24/2018 SUBJECTIVE: The patient denies chest pain. No recurrent hematemesis or melena. PHYSICAL EXAMINATION: VITAL SIGNS: Blood pressure 106/66, heart rate 84, temperature 97.6, and respirations 20. HEENT: Pale conjunctivae. CHEST: Clear. HEART: S1 and S2 regular. EXTREMITIES: No edema. LABORATORY DATA: Hemoglobin and hematocrit 8 and 24.1. White count and platelet count are within normal limits. SMA-7: Sodium 146, potassium 3.6, chloride 116, CO2 of 24, glucose 91, BUN 18, and creatinine 0.8. EKG revealed normal sinus rhythm, prolonged QT interval. Echocardiographic study performed in 10/2017 revealed normal ejection fraction with grade 1 abnormal relaxation pattern. ASSESSMENT: 1. Upper gastrointestinal bleeding. 2. Hepatitis C. 3. Anemia. 4. Slightly prolonged QT interval on electrocardiogram. The patient's potassium level today is 3.6. RECOMMENDATIONS: Continue current GI management and no further cardiac workup is indicated at this time. Jaswinder Shankar MD
== END 2018-05-24 14:00 | disposition home or self-care (01) | DRG 174 ==
LOC: C.ER 14:52 → C.9E 16:14 → C.6T 19:00
PROVIDERS: ADMIT Internal Medicine Nephrology; ATTEND Internal Medicine Nephrology
PROC: 0DB68ZX Excision of Stomach, Via Natural or Artificial Opening Endoscopic, Diagnostic (ICD-10-PCS; principal; 2018-05-23 13:05)
DX: K25.4 Chronic or unspecified gastric ulcer with hemorrhage (principal); B19.20 Unspecified viral hepatitis C without hepatic coma; K21.9 Gastro-esophageal reflux disease without esophagitis; I45.81 Long QT syndrome; D62 Acute posthemorrhagic anemia; K76.0 Fatty (change of) liver, not elsewhere classified; D50.0 Iron deficiency anemia secondary to blood loss (chronic); M19.90 Unspecified osteoarthritis, unspecified site; Z87.11 Personal history of peptic ulcer disease